=== PATIENT | female | born 1980 | race African-American/Black ===

== ENCOUNTER 2019-06-29 23:26 | Observation (INO) | payer MEDICAID, OTHER ==
[~2019-06-29] VITALS: Ht 170.2 cm; Wt 102.1 kg
[2019-06-30] MEDS ORDERED: PNV1TABL50 MT (01:35)
== END 2019-06-30 01:55 | disposition home or self-care (01) ==
LOC: 8 EST LDRP 23:26
PROVIDERS: ADMIT Specialist; ATTEND Specialist
DX: O42.913 Preterm premature rupture of membranes, unspecified as to length of time between rupture and onset of labor, third trimester (principal); Z3A.39 39 weeks gestation of pregnancy
CPT/HCPCS: 99281; G0378

== ENCOUNTER 2019-07-01 03:16 | Inpatient (IN) | payer OTHER ==
[~2019-07-01] VITALS: Ht 170.2 cm; Wt 102.1 kg
[~2019-07-01 03:16] MED LIST: PNV1TABL50 MT
[2019-07-01] MEDS ORDERED: DEXT 5%/LR + PITOCIN 20UNITS/L 1,000 ML IV SCH ×2 (04:08→11:22)
[2019-07-01] MEDS ORDERED: LIDOCAINE HCL 1% 20ML VIAL (Pyxis) INJ INFIL SCH (04:15)
[2019-07-01] MEDS ORDERED: LACTATED RINGERS 1,000 ML IV SCH (04:15)
[2019-07-01] MEDS ORDERED: CARBOPROST TROMETHAMINE 250 MCG/ML AMPUL IM PRN (04:15)
[2019-07-01] MEDS ORDERED: BUTORPHANOL TARTRATE 2 MG/ML VIAL IV PRN (04:15)
[2019-07-01] MEDS ORDERED: NALOXONE HCL 0.4 MG/ML 1ML VIAL IM PRN (04:15)
[2019-07-01] MEDS ORDERED: METHYLERGONOVINE MALEATE 0.2 MG/ML IM PRN (04:15)
[2019-07-01] MEDS ORDERED: ROPIVACAINE HCL/PF EPIDURAL 200 ML EPI SCH (04:30)
[2019-07-01] MEDS ORDERED: PENICILLIN G POTASSIUM 5 MMU in DEXT 5% WATER 100 ML IV SCH (04:30)
[2019-07-01 04:38] LABS: PARTIAL THROMBOPLASTIN TIME 25.9 sec (23.4-31.0); PROTHROMBIN TIME 9.9 sec (9.6-11.0)
[2019-07-01 04:46] LABS: CHLORIDE 109 mEq/L (98-107)
[2019-07-01 05:06] LABS: BASOPHILS % 0.3 % (0.0-2.0); HEMATOCRIT. 35.2 % (36.0-48.0); HEMOGLOBIN. 11.8 g/dL (12.0-16.0); MEAN CORPUSCULAR HEMOGLOBIN 29.9 pg (28.0-32.0); MEAN CORPUSCULAR VOLUME 89.4 fL (81.0-99.0); MEAN PLATELET VOLUME 9.5 fl (7.4-10.4); MONOCYTES % 6.5 % (2.0-8.0); NEUTROPHILS % 75.2 % (40.0-76.0); PLATELET 199 x1000/uL (130-400); RED BLOOD CELL COUNT 3.94 mill/uL (4.2-5.4); RED CELL DISTRIBUTION WIDTH 14.2 % (11.6-14.6)
[2019-07-01 05:14] LABS: HEPATITIS B SURFACE ANTIGEN NEGATIVE
[2019-07-01 08:49] LABS: CLARITY URINE CLEAR (CLEAR); COLOR URINE YELLOW (YELLOW); KETONES URINE NEGATIVE (NEGATIVE); LEUKOCYTE ESTERASE URINE NEGATIVE (NEGATIVE); NITRITE URINE NEGATIVE (NEGATIVE); OCCULT BLOOD URINE 2+ (NEGATIVE); PH URINE 5.5 (4.5-8.0); PROTEIN URINE NEGATIVE (NEGATIVE); SPECIFIC GRAVITY URINE 1.012 (1.005-1.030); UROBILINOGEN URINE 0.2 E.U./dL (0.2-1.0)
[2019-07-01] MEDS ORDERED: PENICILLIN G POTASSIUM 2.5 MMU in DEXTROSE 5% WATER 50 ML IV SCH (09:00)
[2019-07-01 09:28] LABS: *COCAINE SCREEN URINE NEGATIVE (NEGATIVE); METHADONE URINE SCREEN NEGATIVE (NEGATIVE)
[2019-07-01 09:29] LABS: *AMPHETAMINES SCREEN URINE NEGATIVE (NEGATIVE); *BARBITURATES SCREEN URINE NEGATIVE (NEGATIVE); CANNABINOID URINE SCREEN NEGATIVE (NEGATIVE); OPIATES URINE SCREEN NEGATIVE (NEGATIVE); PHENCYCLIDINE URINE SCREEN NEGATIVE (NEGATIVE)
[2019-07-01 09:31] LABS: *BENZODIAZEPINES SCREEN URINE NEGATIVE (NEGATIVE)
[2019-07-01] MEDS ORDERED: BENZOCAINE/LANOLIN/ALOE VERA SPRAY TOP PRN (11:30)
[2019-07-01] MEDS ORDERED: ACETAMINOPHEN WITH CODEINE 300/30MG TABLET PO PRN (11:30)
[2019-07-01] MEDS ORDERED: HEMORRHOIDAL SUPP PR PRN (11:30)
[2019-07-01] MEDS ORDERED: RHO(D) IMMUNE GLOBULIN 300 MCG/SYR IM PRN (11:30)
[2019-07-01] MEDS ORDERED: BISACODYL 10MG SUPP PR PRN (11:30)
[2019-07-01] MEDS ORDERED: IBUPROFEN 400MG TABLET PO PRN (11:30)
[2019-07-01 12:15] VITALS: BP 130/72
[2019-07-01] MEDS ORDERED: MAGNESIUM/ALUMINUM HYDROXIDE/SIMETHICONE 30ML UDC PO SCH (13:00)
[2019-07-01 13:15] VITALS: BP 128/72
[2019-07-01 14:45] VITALS: BP 130/78
[2019-07-01 19:15] VITALS: BP 136/70
[2019-07-01] MEDS: DOCUSATE SODIUM 100MG CAPSULE PO SCH (20:46)
[2019-07-01] MEDS: ACETAMINOPHEN WITH CODEINE 300/30MG TABLET PO PRN (20:47)
[2019-07-02 04:55] VITALS: BP 106/55
[2019-07-02] MEDS: ACETAMINOPHEN WITH CODEINE 300/30MG TABLET PO PRN ×3 (06:40→18:36)
[2019-07-02 07:20] LABS: BASOPHILS % 0.3 % (0.0-2.0); EOSINOPHILS % 1.4 % (0.0-5.0); HEMATOCRIT. 32.8 % (36.0-48.0); HEMOGLOBIN. 10.8 g/dL (12.0-16.0); LYMPHOCYTES % 17.4 % (20.0-50.0); MEAN CORPUSCULAR HEMOGLOBIN 29.4 pg (28.0-32.0); MEAN CORPUSCULAR VOLUME 89.2 fL (81.0-99.0); MEAN PLATELET VOLUME 9.2 fl (7.4-10.4); MONOCYTES % 7.9 % (2.0-8.0); PLATELET 155 x1000/uL (130-400); RED BLOOD CELL COUNT 3.68 mill/uL (4.2-5.4); RED CELL DISTRIBUTION WIDTH 13.8 % (11.6-14.6)
[2019-07-02 08:30] VITALS: BP 120/69
[2019-07-02] MEDS: SIMETHICONE 80MG TABLET CHEW PO SCH ×5 (09:00→21:11)
[2019-07-02] MEDS: FERROUS SULFATE 325MG TABLET PO SCH (09:06)
[2019-07-02 17:44] VITALS: BP 104/54
[2019-07-02 19:30] VITALS: BP 114/57
[2019-07-02] MEDS: DOCUSATE SODIUM 100MG CAPSULE PO SCH (21:10)
[2019-07-03 04:00] VITALS: BP 108/53
[2019-07-03] MEDS: ACETAMINOPHEN WITH CODEINE 300/30MG TABLET PO PRN (05:11)
[2019-07-03] MEDS: FERROUS SULFATE 325MG TABLET PO SCH (09:43)
[2019-07-03 10:01] VITALS: BP 128/71
== END 2019-07-03 10:45 | disposition home or self-care (01) | DRG 560 ==
LOC: 8 EST LDRP 03:16 → OBSVTOIN 03:16 → 8 EST A/PP 11:42
PROVIDERS: ADMIT Specialist; ATTEND Specialist
PROC: 10E0XZZ Delivery of Products of Conception, External Approach (ICD-10-PCS; principal; 2019-07-01)
PROC: 3E0R3BZ Introduction of Anesthetic Agent into Spinal Canal, Percutaneous Approach (ICD-10-PCS; 2019-07-01)
PROC: 00HU33Z Insertion of Infusion Device into Spinal Canal, Percutaneous Approach (ICD-10-PCS; 2019-07-01)
DX: O80 Encounter for full-term uncomplicated delivery (principal); Z37.0 Single live birth; Z3A.39 39 weeks gestation of pregnancy
CPT/HCPCS: 36415; 80305; 81003; 84550; 85384; 86592; 86703; 86762; 86850; 86900; 87340; J2540; J2590; J2795; J7060; A4315